=== PATIENT | male | born 1950 ===

== ENCOUNTER 2016-08-28 12:25 | Observation (INO) | payer MEDICAID ==
[2016-08-28 12:40] VITALS: TEMP 98.4; O2SAT 100
[2016-08-28] MEDS ORDERED: Absorbable Gelatin Sponge Size 12-7 ONE ×3 (14:05→14:15)
[2016-08-28] MEDS ORDERED: Absorbable Gelatin Sponge Size 100 TP ONE (14:08)
[2016-08-28] MEDS ORDERED: Cellulose Hemostat 2X3 Sheet TP ONE (14:20)
--- NOTE | 2016-08-28 14:32 | ED PDOC ---
HPI: Dental Pain/Injury Time Seen by Provider: 08/28/16 13:33 Chief Complaint (Nursing): Abnormal Skin Integrity Chief Complaint (Provider): dental pain History Per: Patient History/Exam Limitations: no limitations Additional Complaint(s): 66yo M in ED with poor half-way-states that he had a crown placed last -states that he was told he would have some gum bleeding. last night noted some bleeding after tooth brushing this AM increased and states she is bleeding profusely form gums went to dentists today was examined and told that he needed either primary care or ER attentions at this time. Pt denies any bleeding d/o, not currently taking blood thinners. Past Medical History Reviewed: Historical Data, Nursing Documentation, Vital Signs Vital Signs: Last Vital Signs Temp 98.4 F 08/28/16 12:35 Pulse 112 H 08/28/16 12:35 Resp 16 08/28/16 12:35 BP 148/100 H 08/28/16 12:35 Pulse Ox 100 08/28/16 12:35 - Medical History PMH: HTN, Hypercholesterolemia - Family History Family History: States: Unknown Family Hx - Home Medications Home Medications: Ambulatory Orders Medication Instructions Recorded Hydrochlorothiazide [HCTZ] 1 tab PO DAILY 06/19/15 Docusate [Colace] 100 mg PO BID PRN #20 cap 08/04/15 Nystatin/Triamcinolone [Mycolog 1 oin TP BID #1 tub 02/27/16 Ointment] Amoxicillin/Clavulanate [Augmentin 1 tab PO BID #14 tab 08/28/16 875 MG-125 MG] - Allergies Allergies/Adverse Reactions: Allergies Allergy/AdvReac Type Severity Reaction Status Date / Time No Known Allergies Allergy Verified 08/28/16 12:34 Review of Systems ROS Statement: Except As Marked, All Systems Reviewed And Found Negative Constitutional: Negative for: Fever, Chills ENT: Positive for: Mouth Pain Cardiovascular: Negative for: Chest Pain Respiratory: Negative for: Cough, Shortness of Breath Physical Exam - Reviewed Nursing Documentation Reviewed: Yes Vital Signs Reviewed: Yes - Physical Exam Appears: Positive for: Non-toxic, No Acute Distress, Uncomfortable Skin: Positive for: Normal Color, Warm. Negative for: Pallor ENT: Positive for: Normal ENT Inspection, Other (mouth: upper left molar area: continusou bleeding from gum both inner and outer gums with loonsed teeth, teeth root exposure and receding gum lines. pt with advanced gingivities. no bleeding no other placed) Cardiovascular/Chest: Positive for: Regular Rate, Rhythm Respiratory: Positive for: CNT, Normal Breath Sounds Neurologic/Psych: Positive for: Alert, Oriented - Laboratory Results Result Diagrams: 08/28/16 17:45 08/28/16 15:30 Interpretation Of Abn Labs: CO2 low, BUN high-pt will get bolus of NS fluids - ECG O2 Sat by Pulse Oximetry: 100 - Progress ED Course And Treament: unable to control bleeding with guaze, surigicel #4 used and cellulose hemostat to help control bleeding- some hemostatis achieved. pt will get H&H 16:04: pt still with some bleeding, but majority of bleeding under control appt made with [facility] by pt. liaison for next week, and with primary dental for tomorrow. Will use lido/epi gauze soak to attempt to further stop the bleeding, bleeding is further controlled. pt stable and well appearing 16:47 [place] consulted-suggested by MD Juan- suggested soak with benzyl peroxide and if bleding does not stop to have pt f.u in [facility] clinic at [place] tomorrow. 18:11: bleeding has stopped. pt now tolerating soft puree food. 18:59: pt now pending folic acid. completed abx tx in ED. normal H&H at this time. pt was given appt time and number/place for perodonitis. also will be given [facility] contact if worsened. Medical Decision Making Medical Decision Making: pt well appearing. no bleeding in gingiva Pt given strict instructions for f/u. appt made with entrepreneur Maria Del Carmen [facility] [id number] [place] [phone] on September 04 2016 4pm VS stable Pt well appearing, afebrile. ED OBSERVATION Discharge: Yes Date of observation admission: 08/28/16 Time of observation admission: 15:35 - Observation admission statement Patient is being placed in observation because:: Pt needs abx and folic acid. adn pending good hemostasis. - Goals of Observation Goals of observation are:: pt is stable in ED-at this time. now pending folic acid and abx/NS. good hemostatis achieved Disposition - Clinical Impression Clinical Impression: Gingival bleeding, Gingivitis - Patient ED Disposition Is Patient to be Admitted: Transfer of Care Counseled Patient/Family Regarding: Studies Performed, Diagnosis, Need For Followup, Rx Given - Disposition Disposition: Routine/Home Disposition Time: 19:57 Condition: STABLE
[2016-08-28] MEDS ORDERED: Ampicillin/Sulbactam 3 GM in Sodium Chloride 0.9% 100 ML IVPB STA (15:09)
[2016-08-28] MEDS ORDERED: metroNIDAZOLE 500mg/100ml NS 100 ML IVPB STA (15:12)
[2016-08-28] MEDS ORDERED: Lidocaine 2% w Epi 1:100,000 Inj IJ ONE ×2 (15:59→16:03)
[2016-08-28] MEDS ORDERED: metroNIDAZOLE 500mg/100ml NS 100 ML IVPB ONE (16:03)
[2016-08-28 16:05] LABS: ALKALINE PHOSPHATASE 92 U/L (38-126); ALT/SGPT 67 U/L (21-72); AST/SGOT 78 U/L (17-59); BILIRUBIN,TOTAL 1.5 mg/dl (0.2-1.3); BLOOD UREA NITROGEN 30 mg/dl (9-20); CARBON DIOXIDE 20 mmol/L (22-30); CHLORIDE 106 mmol/L (98-107); GFR AFRICAN-AMERICAN > 60; GLUCOSE,RANDOM 102 mg/dL (75-110); MAGNESIUM 1.7 MG/DL (1.6-2.3); PHOSPHOROUS 2.3 mg/dl (2.5-4.5); SODIUM 143 mmol/l (132-148); TOTAL PROTEIN 8.7 G/DL (6.3-8.2)
[2016-08-28 16:31] VITALS: BP 144/105; PULSE 100; RESP 19
[2016-08-28] MEDS ORDERED: Sodium Chloride 0.9% 1,000 ML IV STA (16:32)
[2016-08-28] MEDS ORDERED: Absorbable Gelatin Sponge Size 12-7 TP ONE (16:35)
[2016-08-28 18:22] LABS: BASO % 0.5 % (0.0-2.0); EOS # 0.2 K/uL (0.0-0.7); EOS % 1.9 % (0.0-4.0); HEMATOCRIT 39.7 % (35.0-51.0); LYMPH # 1.3 K/uL (1.0-4.3); LYMPH % 14.4 % (20.0-40.0); MEAN CELL VOLUME 97.5 fl (80.0-94.0); MEAN CORPUSCULAR HEMOGLOBIN 33.7 pg (27.0-31.0); MEAN CORPUSCULAR HGB CONC 34.6 g/dL (33.0-37.0); MEAN PLATELET VOLUME 9.4 fl (7.2-11.7); MONO # 0.9 K/uL (0.0-0.8); MONO % 10.1 % (0.0-10.0); NEUT # 6.4 K/uL (1.8-7.0); NEUT % 73.1 % (50.0-75.0); NRBC % 0.1 % (0.0-0.0); RED CELL DISTRIBUTION WIDTH 13.1 % (11.5-14.5); WHITE BLOOD COUNT 8.8 K/uL (4.8-10.8)
[2016-08-28 18:45] LABS: PARTIAL THROMBOPLASTIN TIME 27.7 SECONDS (23.3-32.5)
== END 2016-08-28 20:54 | disposition home or self-care (01) ==
LOC: H.ER 12:25 → H.EROBSV 16:55
PROVIDERS: ADMIT Emergency Medicine; ATTEND Emergency Medicine
DX: K05.10 Chronic gingivitis, plaque induced (principal); I10 Essential (primary) hypertension

== ENCOUNTER 2017-05-12 12:53 | Emergency (ER) | payer MEDICAID ==
[2017-05-12 13:14] VITALS: BP 127/76; PULSE 65; RESP 18; TEMP 96.8; O2SAT 98
[2017-05-12] MEDS ORDERED: Naproxen 500 MG TAB PO STA (14:07)
[2017-05-12] MEDS ORDERED: Naproxen 500 MG TAB PO ONE (14:33)
--- NOTE | 2017-05-12 16:26 | ED PDOC ---
HPI: Back Time Seen by Provider: 05/12/17 13:19 Chief Complaint (Nursing): Back Pain Chief Complaint (Provider): Back Pain History Per: Patient History/Exam Limitations: no limitations Current Symptoms Are (Timing): Still Present Quality Of Discomfort: "Pain" Previous Symptoms: Back Pain (sciatic; herniated lumbar disc) Additional Complaint(s): Keny Valenzuela a 67 year old male with a past medical history of sciatica and lumbar herniated disc presents to the ED intoxicated complaining of back pain. The patient reports that he usually takes naproxen for his back pain but he ran out. Denies hematuria, abdominal pain, nausea, vomiting. PMD: Non [facility] Provider, - Risk Factors AAA Risk Factors: Pos: Older Than 49 Years Of Age, Hypertension Past Medical History Reviewed: Historical Data, Nursing Documentation, Vital Signs Vital Signs: Last Vital Signs Temp 96.8 F L 05/12/17 13:11 Pulse 65 05/12/17 13:11 Resp 18 05/12/17 13:11 BP 127/76 05/12/17 13:11 Pulse Ox 98 05/12/17 13:11 - Medical History PMH: HTN, Hypercholesterolemia - Family History Family History: States: Unknown Family Hx - Social History Current smoker - smoking cessation education provided: Yes (Light Smoker < 10 Cigarettes Daily) Ex-Smoker (has not smoked in the last 12 months): Yes Alcohol: > 2 Drinks/Day Drugs: Denies - Home Medications Home Medications: Ambulatory Orders Medication Instructions Recorded Hydrochlorothiazide [HCTZ] 1 tab PO DAILY 06/19/15 Docusate [Colace] 100 mg PO BID PRN #20 cap 08/04/15 Nystatin/Triamcinolone [Mycolog 1 oin TP BID #1 tub 02/27/16 Ointment] Amoxicillin/Clavulanate [Augmentin 1 tab PO BID #14 tab 08/28/16 875 MG-125 MG] Naproxen 500 mg PO TID #30 tab 05/12/17 - Allergies Allergies/Adverse Reactions: Allergies Allergy/AdvReac Type Severity Reaction Status Date / Time No Known Allergies Allergy Verified 08/28/16 12:34 Review of Systems Gastrointestinal: Negative for: Nausea, Vomiting, Abdominal Pain Genitourinary Male: Negative for: Hematuria Musculoskeletal: Positive for: Back Pain Physical Exam - Reviewed Nursing Documentation Reviewed: Yes Vital Signs Reviewed: Yes - Physical Exam Appears: Positive for: Non-toxic, No Acute Distress Head Exam: Positive for: NORMAL INSPECTION Skin: Positive for: Normal Color, Warm, Dry. Negative for: Rash Eye Exam: Positive for: Normal appearance, EOMI, PERRL Neck: Positive for: Normal, Painless ROM, Supple Cardiovascular/Chest: Positive for: Regular Rate, Rhythm, Chest Non Tender. Negative for: Tachycardia Respiratory: Positive for: Normal Breath Sounds. Negative for: Wheezing, Respiratory Distress Back: Positive for: Normal Inspection. Negative for: L CVA Tenderness, R CVA Tenderness, Vertebral Tenderness Neurologic/Psych: Positive for: Alert, Oriented, Gait (unsteady). Negative for : Motor/Sensory Deficits - ECG O2 Sat by Pulse Oximetry: 98 (RA) Pulse Ox Interpretation: Normal Medical Decision Making Medical Decision Makin Initial Impression 67 y/o male presenting with back pain Initial Plan: * Udip * Naproxen 500mg PO * Reevaluation Patient will be given naproxen and allowed to stay in the ED until he is clinically sober. PT with unremarkable udip. Rx naproxen with f.u shanteht pmd. Documented by Joycelyn Mayorga acting as a scribe for Claudia Wei. All medical record entries made by the Scribe were at my direction and personally dictated by me. I have reviewed the chart and agree that the record accurately reflects my personal performance of the history, physical exam, medical decision making, and the department course for this patient. I have also personally directed, reviewed, and agree with the discharge instructions and disposition. Disposition - Clinical Impression Clinical Impression: Sciatica - Patient ED Disposition Is Patient to be Admitted: No Counseled Patient/Family Regarding: Studies Performed, Diagnosis, Need For Followup, Rx Given - Disposition Disposition: Routine/Home Disposition Time: 16:30 Condition: STABLE Prescriptions: Naproxen 500 mg PO TID #30 tab Instructions: Lumbar Radiculopathy (ED) Print Language: PALESTINIAN - POA Present On Arrival: None
== END 2017-05-12 16:44 | disposition home or self-care (01) ==
LOC: H.ER 12:53
DX: M54.30 Sciatica, unspecified side (principal); F17.210 Nicotine dependence, cigarettes, uncomplicated; I10 Essential (primary) hypertension

== ENCOUNTER 2017-06-19 05:39 | Emergency (ER) | payer MEDICAID ==
[2017-06-19 06:00] VITALS: TEMP 98; O2SAT 98
[2017-06-19 07:59] LABS: BASO # 0.1 K/uL (0.0-0.2); BASO % 1.4 % (0.0-2.0); EOS # 0.3 K/uL (0.0-0.7); EOS % 5.5 % (0.0-4.0); HEMOGLOBIN 12.7 g/dL (12.0-18.0); LYMPH # 1.9 K/uL (1.0-4.3); LYMPH % 36.3 % (20.0-40.0); MEAN CELL VOLUME 93.1 fl (80.0-94.0); MEAN CORPUSCULAR HEMOGLOBIN 30.9 pg (27.0-31.0); MEAN CORPUSCULAR HGB CONC 33.2 g/dL (33.0-37.0); MEAN PLATELET VOLUME 8.3 fl (7.2-11.7); MONO # 0.6 K/uL (0.0-0.8); MONO % 11.7 % (0.0-10.0); NEUT # 2.4 K/uL (1.8-7.0); NEUT % 45.1 % (50.0-75.0); NRBC % 0.2 % (0.0-0.0); RBC 4.12 Mil/uL (4.40-5.90); RED CELL DISTRIBUTION WIDTH 15.9 % (11.5-14.5); WHITE BLOOD COUNT 5.3 K/uL (4.8-10.8)
[2017-06-19 08:11] LABS: ALB/GLOB RATIO 1.1 (1.0-2.1); ALBUMIN 4.3 g/dL (3.5-5.0); ALT/SGPT 72 U/L (21-72); AST/SGOT 87 U/L (17-59); BLOOD UREA NITROGEN 11 mg/dl (9-20); CALCIUM 8.7 mg/dL (8.4-10.2); GFR AFRICAN-AMERICAN > 60; GFR NON-AFRICAN AMERICAN > 60
--- NOTE | 2017-06-19 09:33 | ED PDOC ---
HPI: Back Time Seen by Provider: 06/19/17 07:05 Chief Complaint (Nursing): Alcohol Ingestion Chief Complaint (Provider): Chronic Back Pain History Per: Patient History/Exam Limitations: no limitations Onset/Duration Of Symptoms: Persistent Current Symptoms Are (Timing): Still Present Previous Symptoms: Back Pain, Chronic Pain Additional Complaint(s): Keny Valenzuela, a 67 year old male presents to the ED complaining of chronic back pain radiating to his right leg onset several months ago. Reports he goes to the clinic. However, after visiting his family from [place], the pain has worsen and the treatment at clinic does not provide him any relief. To relieve his pain, he drink alcohol and does not take any medication for the pain. He has taken one dosage of Napizole. Reports he cannot move his right leg. Denies fever, nausea, vomiting, or trouble urinating. PMD: Provider TBD Past Medical History Reviewed: Historical Data, Nursing Documentation, Vital Signs Vital Signs: Last Vital Signs Temp 98.0 F 06/19/17 05:58 Pulse 99 H 06/19/17 06:30 Resp 16 06/19/17 05:58 BP 148/99 H 06/19/17 06:30 Pulse Ox 98 06/19/17 05:58 - Medical History PMH: HTN, Hypercholesterolemia Denies: Chronic Kidney Disease Other PMH: Lumbar CMIR; bulging disk 1 year ago; L4-L5 lobel that presses on nerve - Surgical History Surgical History: No Surg Hx - Family History Family History: States: Unknown Family Hx - Social History Current smoker - smoking cessation education provided: Yes Alcohol: Occasional - Home Medications Home Medications: Ambulatory Orders Medication Instructions Recorded Hydrochlorothiazide [HCTZ] 1 tab PO DAILY 06/19/15 Docusate [Colace] 100 mg PO BID PRN #20 cap 08/04/15 Nystatin/Triamcinolone [Mycolog 1 oin TP BID #1 tub 02/27/16 Ointment] Amoxicillin/Clavulanate [Augmentin 1 tab PO BID #14 tab 08/28/16 875 MG-125 MG] Naproxen 500 mg PO TID #30 tab 05/12/17 Ibuprofen [Motrin] 600 mg PO Q6H #20 tab 06/07/17 Cyclobenzaprine [Cyclobenzaprine 10 mg PO TID #30 tab 06/19/17 HCl] Indomethacin [Indocin] 25 mg PO TID PRN #30 cap 06/19/17 Lidocaine 5% [Lidoderm] 1 patch TD DAILY #10 patch 06/19/17 - Allergies Allergies/Adverse Reactions: Allergies Allergy/AdvReac Type Severity Reaction Status Date / Time No Known Allergies Allergy Verified 08/28/16 12:34 Review of Systems ROS Statement: Except As Marked, All Systems Reviewed And Found Negative Constitutional: Negative for: Fever Gastrointestinal: Negative for: Nausea, Vomiting Genitourinary Male: Negative for: Frequency Musculoskeletal: Positive for: Back Pain (radiates to the right leg), Leg Pain ( right leg) Physical Exam - Reviewed Nursing Documentation Reviewed: Yes Vital Signs Reviewed: Yes - Physical Exam Appears: Positive for: Well, Non-toxic Head Exam: Positive for: ATRAUMATIC, NORMAL INSPECTION, NORMOCEPHALIC Skin: Positive for: Normal Color, Warm, Dry Eye Exam: Positive for: Normal appearance, EOMI, PERRL ENT: Positive for: Normal ENT Inspection Neck: Positive for: Normal, Painless ROM, Supple Cardiovascular/Chest: Positive for: Regular Rate, Rhythm. Negative for: Murmur , Bradycardia Respiratory: Positive for: Normal Breath Sounds. Negative for: Wheezing, Respiratory Distress Gastrointestinal/Abdominal: Positive for: Normal Exam, Bowel Sounds, Soft. Negative for: Tenderness Extremity: Positive for: Tenderness (Palpable tenderness on right para lumbar), Other (Leg strength (+) Right leg and (-) left leg) Neurologic/Psych: Positive for: Alert, Oriented (x3), Motor/Sensory Deficits (5/ 5), Gait - Laboratory Results Result Diagrams: 06/19/17 07:47 06/19/17 07:47 - ECG O2 Sat by Pulse Oximetry: 98 (RA) Pulse Ox Interpretation: Normal Medical Decision Making Medical Decision Making: Time: 07:27 Initial Impression: Lumbar radiculopathy with muscle spasm without severe neural diffusion Initial Plan: --Alcohol Serum --CMP --Drug screen --Flexeril 10mg --Toradol 30mg --Tyenol 650mg --Urinalysis --Reevaluation Documented by Jennifer Valenzuela acting as a scribe for Linda Da Silva MD. All medical record entries made by the Scribe were at my direction and personally dictated by me. I have reviewed the chart and agree that the record accurately reflects my personal performance of the history, physical exam, medical decision making, and the department course for this patient. I have also personally directed, reviewed, and agree with the discharge instructions and disposition. Disposition - Clinical Impression Clinical Impression: Lumbar radicular pain - Patient ED Disposition Is Patient to be Admitted: No Doctor Will See Patient In The: Office Counseled Patient/Family Regarding: Diagnosis, Need For Followup, Rx Given - Disposition Referrals: [facility] [Outside] [facility] [Outside] Disposition: Routine/Home Disposition Time: 12:08 Condition: IMPROVED Prescriptions: Cyclobenzaprine [Cyclobenzaprine HCl] 10 mg PO TID #30 tab Indomethacin [Indocin] 25 mg PO TID PRN #30 cap PRN Reason: Pain, Moderate (4-7) Lidocaine 5% [Lidoderm] 1 patch TD DAILY #10 patch Instructions: Lumbar Disc Herniation (ED) Forms: [facility] (Estonian) Print Language: UKRAINIAN - POA Present On Arrival: None
[2017-06-19 10:38] LABS: URINE BILIRUBIN NEGATIVE (NEGATIVE); URINE BLOOD NEGATIVE (NEGATIVE); URINE CLARITY CLEAR (Clear); URINE COLOR YELLOW (YELLOW); URINE GLUCOSE (UA) NEG (Normal); URINE LEUKOCYTE ESTERASE NEG Leu/uL (Negative); URINE NITRATE NEGATIVE (NEGATIVE); URINE PROTEIN NEGATIVE (NEGATIVE); URINE UROBILINOGEN 0.2-1.0 mg/dL (0.2-1.0)
[2017-06-19 10:54] LABS: BARBITURATES, UR NEGATIVE (NEGATIVE); BENZODIAZEPINES, UR NEGATIVE (NEGATIVE); OPIATES, UR NEGATIVE (NEGATIVE); PHENCYCLIDINE, UR NEGATIVE (NEGATIVE)
[2017-06-19 14:19] VITALS: BP 137/84; PULSE 87; RESP 18
== END 2017-06-19 14:18 | disposition home or self-care (01) ==
LOC: H.ER 05:39
DX: M51.06 Intervertebral disc disorders with myelopathy, lumbar region (principal); E78.00 Pure hypercholesterolemia, unspecified; G89.29 Other chronic pain; I10 Essential (primary) hypertension; M54.16 Radiculopathy, lumbar region
CPT/HCPCS: 80053; 80320; 80324; 80345; 80346; 80349; 80353; 80358; 80361; 81003; 83992; 85025; 99283; J1885

== ENCOUNTER 2017-08-25 23:42 | Emergency (ER) | payer MEDICAID ==
[2017-08-25 23:49] VITALS: O2SAT 98
--- NOTE | 2017-08-26 00:45 | ED PDOC ---
Lower Extremity Pain/Injury Time Seen by Provider: 08/25/17 23:42 Chief Complaint (Nursing): Back Pain Chief Complaint (Provider): leg pain History Per: Patient History/Exam Limitations: intoxication Onset/Duration Of Symptoms: Persistent (x3 months) Current Symptoms Are (Timing): Still Present Additional Complaint(s): 67 year old male with medical history of hypertension, arthritis and ETOH abuse , presents to the emergency department with a complaint of right-sided leg pain radiating from right buttock ongoing for 3 months. He denied any trauma. Patient reports using OTC patches for relief and admits to drinking alcohol earlier today. PMD: Candace Max MD Past Medical History Reviewed: Historical Data, Nursing Documentation, Vital Signs Vital Signs: Last Vital Signs Temp 97.6 F 08/25/17 23:46 Pulse 106 H 08/25/17 23:46 Resp 18 08/25/17 23:46 BP 165/100 H 08/25/17 23:46 Pulse Ox 98 08/25/17 23:46 - Medical History PMH: Arthritis, HTN, Hypercholesterolemia Denies: Chronic Kidney Disease - Surgical History Surgical History: No Surg Hx - Family History Family History: States: Unknown Family Hx - Social History Current smoker - smoking cessation education provided: Yes Alcohol: > 2 Drinks/Day Drugs: Denies - Home Medications Home Medications: Ambulatory Orders Medication Instructions Recorded Hydrochlorothiazide [HCTZ] 1 tab PO DAILY 06/19/15 Docusate [Colace] 100 mg PO BID PRN #20 cap 08/04/15 Nystatin/Triamcinolone [Mycolog 1 oin TP BID #1 tub 02/27/16 Ointment] Amoxicillin/Clavulanate [Augmentin 1 tab PO BID #14 tab 08/28/16 875 MG-125 MG] Naproxen 500 mg PO TID #30 tab 05/12/17 Ibuprofen [Motrin] 600 mg PO Q6H #20 tab 06/07/17 Cyclobenzaprine [Cyclobenzaprine 10 mg PO TID #30 tab 06/19/17 HCl] Indomethacin [Indocin] 25 mg PO TID PRN #30 cap 06/19/17 Lidocaine 5% [Lidoderm] 1 patch TD DAILY #10 patch 06/19/17 - Allergies Allergies/Adverse Reactions: Allergies Allergy/AdvReac Type Severity Reaction Status Date / Time No Known Allergies Allergy Verified 08/28/16 12:34 Review of Systems Review Of Systems: ROS cannot be obtained secondary to pt's inabilty to answer questions. (intoxicated) Musculoskeletal: Positive for: Leg Pain (right-sided) Physical Exam - Reviewed Nursing Documentation Reviewed: Yes Vital Signs Reviewed: Yes - Physical Exam Appears: Positive for: Non-toxic, No Acute Distress Head Exam: Positive for: ATRAUMATIC, NORMAL INSPECTION, NORMOCEPHALIC Neck: Positive for: Normal Cardiovascular/Chest: Positive for: Regular Rate, Rhythm. Negative for: Murmur Respiratory: Positive for: Normal Breath Sounds. Negative for: Wheezing, Respiratory Distress Pulses-Dorsalis Pedis (L): 2+ Pulses-Dorsalis Pedis (R): 2+ Extremity: Positive for: Normal ROM (upper/lower). Negative for: Pedal Edema ( bilateral), Deformity (upper/lower) Neurologic/Psych: Positive for: Alert, Oriented, Gait (unsteady), Other ( slurred speech). Negative for: Motor/Sensory Deficits - Laboratory Results Result Diagrams: 08/26/17 00:44 08/26/17 00:44 - ECG O2 Sat by Pulse Oximetry: 98 (RA) Pulse Ox Interpretation: Normal Medical Decision Making Medical Decision Making: Initial Impression: 67 y/o male with right LE pain in setting of known arthritis and ETOH abuse Initial Plan: * Alcohol serum * CMP * Toradol 10mg IVP * Accucheck * Xray Tibia/fibula Time: 0300 --Labs: no significant abnormalities except for elevated blood alcohol level. --Xray tibia/fibula: negative for fractures or dislocation. --Upon provider reevaluation, patient is feeling better, medically stable and requires no further treatment in the ED at this time. Patient will be discharged home. Counseling was provided and all questions were answered regarding diagnosis and need for follow up with [facility]. There is agreement to discharge plan. Return if symptoms persist or worsen. Clinical Impression: Arthritis; Alcohol intoxication Scribe Attestation: Documented by Jennifer Reece, acting as a scribe for Boaz He MD. Provider Scribe Attestation: All medical record entries made by the Scribe were at my direction and personally dictated by me. I have reviewed the chart and agree that the record accurately reflects my personal performance of the history, physical exam, medical decision making, and the department course for this patient. I have also personally directed, reviewed, and agree with the discharge instructions and disposition. Disposition - Clinical Impression Clinical Impression: Arthritis, Alcohol intoxication - Patient ED Disposition Is Patient to be Admitted: No Counseled Patient/Family Regarding: Studies Performed, Diagnosis, Need For Followup - Disposition Referrals: [facility] [Outside] Disposition: Routine/Home Disposition Time: 03:00 Condition: STABLE Instructions: Osteoarthritis, Alcohol Abuse and Alcoholism (DC) Forms: [employer] (Thai) Print Language: CYMRAES
[2017-08-26 00:52] LABS: BASO # 0.1 K/uL (0.0-0.2); BASO % 0.8 % (0.0-2.0); EOS # 0.1 K/uL (0.0-0.7); EOS % 0.9 % (0.0-4.0); HEMOGLOBIN 14.2 g/dL (12.0-18.0); LYMPH # 1.4 K/uL (1.0-4.3); LYMPH % 15.5 % (20.0-40.0); MEAN CELL VOLUME 96.2 fl (80.0-94.0); MEAN CORPUSCULAR HEMOGLOBIN 32.5 pg (27.0-31.0); MEAN CORPUSCULAR HGB CONC 33.8 g/dL (33.0-37.0); MEAN PLATELET VOLUME 8.4 fl (7.2-11.7); MONO % 11.2 % (0.0-10.0); NEUT # 6.5 K/uL (1.8-7.0); NEUT % 71.6 % (50.0-75.0); NRBC % 0.1 % (0.0-0.0); RBC 4.36 Mil/uL (4.40-5.90); RED CELL DISTRIBUTION WIDTH 13.9 % (11.5-14.5)
[2017-08-26 01:14] LABS: ALBUMIN 4.4 g/dL (3.5-5.0); ALT/SGPT 64 U/L (21-72); AST/SGOT 105 U/L (17-59); BLOOD UREA NITROGEN 25 mg/dl (9-20); CALCIUM 8.8 mg/dL (8.4-10.2); GFR AFRICAN-AMERICAN > 60; GFR NON-AFRICAN AMERICAN > 60
[2017-08-26 06:22] VITALS: BP 150/95; PULSE 96; RESP 16; TEMP 98.3
--- NOTE | 2017-08-26 09:56 | RAD ---
PROCEDURE: Radiographs of the right tibia and fibula. HISTORY: pain COMPARISON: None available. TECHNIQUE: Frontal and lateral views obtained. FINDINGS: BONES: No fracture or destructive lesion. JOINT SPACES: Unremarkable. OTHER FINDINGS: None. IMPRESSION: Unremarkable radiographs of the right tibia and fibula.
== END 2017-08-26 06:21 | disposition home or self-care (01) ==
LOC: H.ER 23:42
DX: M19.90 Unspecified osteoarthritis, unspecified site (principal); E78.00 Pure hypercholesterolemia, unspecified; F10.129 Alcohol abuse with intoxication, unspecified; I10 Essential (primary) hypertension
CPT/HCPCS: 73590; 80053; 80320; 82948; 85025; 96374; 99283; J1885

== ENCOUNTER 2017-09-09 13:12 | Emergency (ER) | payer MEDICAID ==
--- NOTE | 2017-09-09 16:03 | ED PDOC ---
HPI: Psych/Substance Abuse Time Seen by Provider: 09/09/17 13:25 Chief Complaint (Nursing): Alcohol Ingestion Chief Complaint (Provider): Alcohol Ingestion ED Caveat: Intoxicated History Per: Patient History/Exam Limitations: intoxication Onset/Duration Of Symptoms: Hrs Current Symptoms Are (Timing): Still Present Modifying Factor(s): Alcohol Additional Complaint(s): 67 y/o male presents to the ED for EtOH intoxication. Patient was found by [place] [employer] drinking in public. He has an unsteady gate and admits to drinking beer but offers no complaints. PMD: None provided Past Medical History Reviewed: Historical Data, Nursing Documentation, Vital Signs Vital Signs: Last Vital Signs Temp 98.9 F 09/09/17 13:14 Pulse 96 H 09/09/17 13:14 Resp 16 09/09/17 13:14 BP 144/89 09/09/17 13:14 Pulse Ox 97 09/09/17 13:14 - Medical History PMH: Arthritis, HTN, Hypercholesterolemia Denies: Chronic Kidney Disease - Surgical History Surgical History: No Surg Hx - Family History Family History: States: Unknown Family Hx - Social History Alcohol: > 2 Drinks/Day - Home Medications Home Medications: Ambulatory Orders Medication Instructions Recorded Hydrochlorothiazide [HCTZ] 1 tab PO DAILY 06/19/15 Docusate [Colace] 100 mg PO BID PRN #20 cap 08/04/15 Nystatin/Triamcinolone [Mycolog 1 oin TP BID #1 tub 02/27/16 Ointment] Amoxicillin/Clavulanate [Augmentin 1 tab PO BID #14 tab 08/28/16 875 MG-125 MG] Naproxen 500 mg PO TID #30 tab 05/12/17 Ibuprofen [Motrin] 600 mg PO Q6H #20 tab 06/07/17 Cyclobenzaprine [Cyclobenzaprine 10 mg PO TID #30 tab 06/19/17 HCl] Indomethacin [Indocin] 25 mg PO TID PRN #30 cap 06/19/17 Lidocaine 5% [Lidoderm] 1 patch TD DAILY #10 patch 06/19/17 - Allergies Allergies/Adverse Reactions: Allergies Allergy/AdvReac Type Severity Reaction Status Date / Time No Known Allergies Allergy Verified 09/09/17 13:14 Review of Systems ROS Statement: Except As Marked, All Systems Reviewed And Found Negative Constitutional: Positive for: Other (EtOH intoxication) Neurological: Negative for: Other (has no complaints) Physical Exam - Reviewed Nursing Documentation Reviewed: Yes Vital Signs Reviewed: Yes - Physical Exam Appears: Positive for: Well, Non-toxic, No Acute Distress Head Exam: Positive for: ATRAUMATIC, NORMAL INSPECTION, NORMOCEPHALIC Skin: Positive for: Normal Color, Warm, Dry Eye Exam: Positive for: EOMI, Normal appearance, PERRL ENT: Positive for: Normal ENT Inspection, Other (EtOH on breath) Neck: Positive for: Normal, Painless ROM Cardiovascular/Chest: Positive for: Regular Rate, Rhythm. Negative for: Murmur Respiratory: Positive for: Normal Breath Sounds. Negative for: Respiratory Distress Gastrointestinal/Abdominal: Positive for: Normal Exam, Soft Back: Positive for: Normal Inspection. Negative for: L CVA Tenderness, R CVA Tenderness, Vertebral Tenderness Extremity: Positive for: Normal ROM. Negative for: Pedal Edema, Deformity Neurologic/Psych: Positive for: Alert, Oriented (x3), Other (slurred speech). Negative for: Motor/Sensory Deficits - ECG O2 Sat by Pulse Oximetry: 97 (RA) Pulse Ox Interpretation: Normal - Progress Re-evaluation Time: 18:50 (Gait steady; unassisted. Offers no complaints. Requesting to be discharged. ) Condition: Re-examined, Improved Medical Decision Making Medical Decision Making: Time: 13:14 Impression: EtOH intoxication Plan: * Glucose check Fingerstick result was 59. Scribe Attestation: Documented by Radha Beck acting as a scribe for Yevgeniy Martin PA-C. MD Scribe Attestation: All medical record entries made by the Scribe were at my direction and personally dictated by me. I have reviewed the chart and agree that the record accurately reflects my personal performance of the history, physical exam, medical decision making, and the department course for this patient. I have also personally directed, reviewed, and agree with the discharge instructions and disposition. Disposition - Clinical Impression Clinical Impression: Alcohol intoxication - Patient ED Disposition Is Patient to be Admitted: No - Disposition Referrals: [facility] [Outside] Disposition: Routine/Home Disposition Time: 18:51 Condition: GOOD Instructions: Alcohol Abuse and Alcoholism (DC) Forms: [employer] [facility] (Citizen [place]) Print Language: KHMER
[2017-09-09 18:42] VITALS: BP 138/79; PULSE 75; RESP 15; TEMP 98
[2017-09-09 18:52] VITALS: O2SAT 97
== END 2017-09-09 19:01 | disposition home or self-care (01) ==
LOC: H.ER 13:12
DX: F10.129 Alcohol abuse with intoxication, unspecified (principal); E78.00 Pure hypercholesterolemia, unspecified; I10 Essential (primary) hypertension

== ENCOUNTER 2017-10-23 23:45 | Emergency (ER) | payer MEDICAID ==
[2017-10-23 23:53] VITALS: O2SAT 99
--- NOTE | 2017-10-24 00:55 | ED PDOC ---
HPI: General Adult Chief Complaint (Provider): HTN History Per: Patient History/Exam Limitations: no limitations Onset/Duration Of Symptoms: Days Have you had recent travel within the past 21 days to any of the following countries: [place], [place], [place] or [place]?: No Time Seen by Provider: 10/24/17 00:09 Chief Complaint (Nursing): Medical Clearance Additional Complaint(s): 67 yo male with history of HTN and alcohol abuse brought in by police for clearance for incarceration. Pt states he is concerned about his blood pressure because he does not always take his medications. Pt also reports feeling depressed but denies taking medication for depression in the past. (Jessica Sims) Past Medical History Reviewed: Historical Data, Nursing Documentation, Vital Signs - Medical History PMH: Arthritis, HTN, Hypercholesterolemia Denies: Chronic Kidney Disease - Surgical History Surgical History: No Surg Hx - Family History Family History: States: Unknown Family Hx - Living Arrangements Living Arrangements: With Family - Social History Current smoker - smoking cessation education provided: No Ex-Smoker (has not smoked in the last 12 months): No Alcohol: None Drugs: Denies Vital Signs: Last Vital Signs Temp 97.7 F 10/24/17 03:36 Pulse 86 10/24/17 03:36 Resp 17 10/24/17 03:36 BP 143/89 10/24/17 03:36 Pulse Ox 99 10/24/17 03:36 - Home Medications Home Medications: Ambulatory Orders Medication Instructions Recorded Hydrochlorothiazide [HCTZ] 1 tab PO DAILY 06/19/15 Docusate [Colace] 100 mg PO BID PRN #20 cap 08/04/15 Nystatin/Triamcinolone [Mycolog 1 oin TP BID #1 tub 02/27/16 Ointment] Amoxicillin/Clavulanate [Augmentin 1 tab PO BID #14 tab 08/28/16 875 MG-125 MG] Naproxen 500 mg PO TID #30 tab 05/12/17 Ibuprofen [Motrin] 600 mg PO Q6H #20 tab 06/07/17 Cyclobenzaprine [Cyclobenzaprine 10 mg PO TID #30 tab 06/19/17 HCl] Indomethacin [Indocin] 25 mg PO TID PRN #30 cap 06/19/17 Lidocaine 5% [Lidoderm] 1 patch TD DAILY #10 patch 06/19/17 - Allergies Allergies/Adverse Reactions: Allergies Allergy/AdvReac Type Severity Reaction Status Date / Time No Known Allergies Allergy Verified 09/09/17 13:14 Review of Systems ROS Statement: Except As Marked, All Systems Reviewed And Found Negative Constitutional: Negative for: Fever, Chills Cardiovascular: Positive for: Other. Negative for: Chest Pain, Palpitations Respiratory: Negative for: Cough, Shortness of Breath Gastrointestinal: Negative for: Nausea, Vomiting, Abdominal Pain, Diarrhea Psych: Positive for: Depression. Negative for: Suicidal ideation Physical Exam - Reviewed Nursing Documentation Reviewed: Yes Vital Signs Reviewed: Yes - Physical Exam Appears: Positive for: Well, Non-toxic, No Acute Distress Head Exam: Positive for: ATRAUMATIC, NORMAL INSPECTION, NORMOCEPHALIC Skin: Positive for: Normal Color, Warm, DRY Eye Exam: Positive for: Normal appearance ENT: Positive for: Normal ENT Inspection Neck: Positive for: Normal, Painless ROM Cardiovascular/Chest: Positive for: Regular Rate, Rhythm Respiratory: Positive for: CNT, Normal Breath Sounds Back: Positive for: Normal Inspection Extremity: Positive for: Normal ROM Neurologic/Psych: Positive for: Alert, Oriented - ECG O2 Sat by Pulse Oximetry: 99 Medical Decision Making Medical Decision Making: Referred to Crisis at 12:35 1515 - Pt discharged by crisis, Dr. Schwartz, depression (Jessica Sims) Disposition - Patient ED Disposition Is Patient to be Admitted: No Counseled Patient/Family Regarding: Diagnosis, Need For Followup - Disposition Disposition: Routine/Home Disposition Time: 03:18 - Clinical Impression Clinical Impression: Depression - Disposition Condition: STABLE Additional Instructions: Patient is medically and psychiatrically stable for incarceration. Instructions: Depression Forms: [facility] (Kiswahili) Print Language: GIBRALTARIAN
[2017-10-24 04:21] VITALS: BP 143/89; PULSE 86; RESP 17; TEMP 97.7
== END 2017-10-24 04:10 ==
LOC: H.ER 23:45
DX: F32.9 Major depressive disorder, single episode, unspecified (principal); I10 Essential (primary) hypertension; Z87.891 Personal history of nicotine dependence; E78.00 Pure hypercholesterolemia, unspecified

== ENCOUNTER 2018-02-22 06:36 | Emergency (ER) | payer MEDICAID ==
[2018-02-22] MEDS ORDERED: Lidocaine 5% Patch TD STA (07:27)
[2018-02-22] MEDS ORDERED: Lidocaine 5% Patch TD ONE (07:45)
--- NOTE | 2018-02-22 09:13 | ED PDOC ---
HPI: Back Time Seen by Provider: 02/22/18 07:02 Chief Complaint (Nursing): Back Pain Chief Complaint (Provider): back pain History Per: Patient History/Exam Limitations: no limitations Onset/Duration Of Symptoms: Days (4-5), Intermittent Episodes Current Symptoms Are (Timing): Still Present Quality Of Discomfort: Sharp Severity: Moderate Previous Symptoms: Back Pain Associated Symptoms: None Exacerbating Factor(s): Turning, Movement, Sitting, Standing Additional Complaint(s): 68yo male c/o right lower back pain radiating to leg, taking NSAID with minimal relief, notes history of sciatica, denies recent trauma, falls, fever, incontinence, rash or urinary symptoms. Past Medical History Reviewed: Historical Data, Nursing Documentation, Vital Signs Vital Signs: Last Vital Signs Temp 98.0 F 02/22/18 06:50 Pulse 82 02/22/18 06:50 Resp 16 02/22/18 06:50 BP 148/91 H 02/22/18 06:50 Pulse Ox 96 02/22/18 06:50 - Medical History PMH: Arthritis, HTN, Hypercholesterolemia Denies: Chronic Kidney Disease - Surgical History Surgical History: No Surg Hx - Family History Family History: States: Unknown Family Hx - Living Arrangements Living Arrangements: With Family - Social History Current smoker - smoking cessation education provided: No - Home Medications Home Medications: Ambulatory Orders Medication Instructions Recorded Hydrochlorothiazide [HCTZ] 1 tab PO DAILY 06/19/15 Docusate [Colace] 100 mg PO BID PRN #20 cap 08/04/15 Nystatin/Triamcinolone [Mycolog 1 oin TP BID #1 tub 02/27/16 Ointment] Amoxicillin/Clavulanate [Augmentin 1 tab PO BID #14 tab 08/28/16 875 MG-125 MG] Naproxen 500 mg PO TID #30 tab 05/12/17 Ibuprofen [Motrin] 600 mg PO Q6H #20 tab 06/07/17 Cyclobenzaprine [Cyclobenzaprine 10 mg PO TID #30 tab 06/19/17 HCl] Indomethacin [Indocin] 25 mg PO TID PRN #30 cap 06/19/17 Lidocaine 5% [Lidoderm] 1 patch TD DAILY #10 patch 06/19/17 Cyclobenzaprine [Cyclobenzaprine 10 mg PO Q8 PRN #9 tab 02/22/18 HCl] Ibuprofen [Motrin Tab] 600 mg PO Q6 PRN #15 tab 02/22/18 traMADol [Ultram] 50 mg PO TID PRN #12 tab 02/22/18 - Allergies Allergies/Adverse Reactions: Allergies Allergy/AdvReac Type Severity Reaction Status Date / Time No Known Allergies Allergy Verified 09/09/17 13:14 Review of Systems ROS Statement: Except As Marked, All Systems Reviewed And Found Negative Constitutional: Negative for: Fever, Sweats Cardiovascular: Negative for: Chest Pain Respiratory: Negative for: Shortness of Breath Gastrointestinal: Negative for: Abdominal Pain Genitourinary Male: Negative for: Dysuria, Frequency, Hematuria, Scrotal Pain Musculoskeletal: Positive for: Back Pain, Leg Pain. Negative for: Neck Pain, Sh oulder Pain, Arm Pain Skin: Negative for: Rash, Lesions, Jaundice Neurological: Negative for: Weakness, Numbness Psych: Negative for: Anxiety Physical Exam - Reviewed Nursing Documentation Reviewed: Yes Vital Signs Reviewed: Yes - Physical Exam Appears: Positive for: Well, Non-toxic, No Acute Distress Head Exam: Positive for: ATRAUMATIC, NORMAL INSPECTION, NORMOCEPHALIC Skin: Positive for: Normal Color, Warm, DRY Eye Exam: Positive for: EOMI Neck: Positive for: Normal, Painless ROM Cardiovascular/Chest: Positive for: Regular Rate, Rhythm Respiratory: Positive for: CNT, Normal Breath Sounds Gastrointestinal/Abdominal: Positive for: Normal Exam, Soft Back: Positive for: Vertebral Tenderness (minimal lumbar), Decreased ROM, Muscle Spasm (R lumbar). Negative for: L CVA Tenderness, R CVA Tenderness Extremity: Positive for: Normal ROM Neurologic/Psych: Positive for: Alert, Oriented. Negative for: Motor/Sensory Deficits - ECG O2 Sat by Pulse Oximetry: 96 Medical Decision Making Medical Decision Making: +gasca test R Toradol, lidoderm patch and flexeril ordered Re-eval showed gradual improvement D/w clinic resident appt made upcoming for re-eval, additional analgesics Rx. Caution w muscle relaxants, do not drive, fall precations. Disposition - Clinical Impression Clinical Impression: Sciatica - Patient ED Disposition Is Patient to be Admitted: No Counseled Patient/Family Regarding: Studies Performed, Diagnosis, Need For Followup, Rx Given - Disposition Referrals: [facility] [Outside] Disposition: Routine/Home Disposition Time: 10:50 Condition: STABLE Additional Instructions: You have a new appt with [facility] on March 02 at 11am Please take medicines as directed and needed for pain. Return to ER for any worse or new symptoms. Prescriptions: Cyclobenzaprine [Cyclobenzaprine HCl] 10 mg PO Q8 PRN #9 tab PRN Reason: Muscle Spasm Ibuprofen [Motrin Tab] 600 mg PO Q6 PRN #15 tab PRN Reason: Pain, Moderate (4-7) traMADol [Ultram] 50 mg PO TID PRN #12 tab PRN Reason: Pain, Moderate (4-7) Instructions: Sciatica (DC) Forms: [facility] (Latvian) Print Language: NAURUAN
[2018-02-22 11:39] VITALS: BP 144/93; PULSE 79; RESP 18; TEMP 98.2
[2018-02-23 15:12] VITALS: O2SAT 96
== END 2018-02-22 11:25 | disposition home or self-care (01) ==
LOC: H.ER 06:36
DX: M54.31 Sciatica, right side (principal); E78.00 Pure hypercholesterolemia, unspecified; I10 Essential (primary) hypertension
CPT/HCPCS: 96372; 99283; J1885; J2270

== ENCOUNTER 2018-08-14 21:06 | Emergency (ER) | payer MEDICAID ==
[2018-08-14 21:12] VITALS: RESP 16
--- NOTE | 2018-08-15 01:15 | ED PDOC ---
HPI: Psych/Substance Abuse Time Seen by Provider: 08/14/18 21:17 Chief Complaint (Nursing): Alcohol Ingestion Chief Complaint (Provider): alcohol intoxication Additional Complaint(s): 68 y/o M with HTN and HL who presents was brought in by ambulance after being found with unsteady gait on the street. Pt admits to drinking alcohol today. Denies fall or head trauma. His only pain is his Right ankle where he had surgery a few months ago and is chronic. He states that he has been depressed over being out of work for the past year but denies SI/HI, auditory or visual hallucinations. Past Medical History Reviewed: Historical Data, Nursing Documentation, Vital Signs Vital Signs: Last Vital Signs Temp 97.2 F L 08/14/18 21:09 Pulse 91 H 08/14/18 21:09 Resp 16 08/14/18 21:09 BP 145/85 08/14/18 21:09 Pulse Ox 98 08/14/18 21:09 - Medical History PMH: Arthritis, HTN, Hypercholesterolemia Denies: Chronic Kidney Disease - Family History Family History: States: Unknown Family Hx - Home Medications Home Medications: Ambulatory Orders Medication Instructions Recorded Hydrochlorothiazide [HCTZ] 1 tab PO DAILY 06/19/15 Docusate [Colace] 100 mg PO BID PRN #20 cap 08/04/15 Nystatin/Triamcinolone [Mycolog 1 oin TP BID #1 tub 02/27/16 Ointment] Amoxicillin/Clavulanate [Augmentin 1 tab PO BID #14 tab 08/28/16 875 MG-125 MG] Naproxen 500 mg PO TID #30 tab 05/12/17 Ibuprofen [Motrin] 600 mg PO Q6H #20 tab 06/07/17 Cyclobenzaprine [Cyclobenzaprine 10 mg PO TID #30 tab 06/19/17 HCl] Indomethacin [Indocin] 25 mg PO TID PRN #30 cap 06/19/17 Lidocaine 5% [Lidoderm] 1 patch TD DAILY #10 patch 06/19/17 Cyclobenzaprine [Cyclobenzaprine 10 mg PO Q8 PRN #9 tab 02/22/18 HCl] Ibuprofen [Motrin Tab] 600 mg PO Q6 PRN #15 tab 02/22/18 traMADol [Ultram] 50 mg PO TID PRN #12 tab 02/22/18 - Allergies Allergies/Adverse Reactions: Allergies Allergy/AdvReac Type Severity Reaction Status Date / Time No Known Allergies Allergy Verified 09/09/17 13:14 Review of Systems Musculoskeletal: Positive for: Foot Pain (Right ankle pain) Neurological: Negative for: Headache, Dizziness Psych: Positive for: Depression. Negative for: Suicidal ideation Physical Exam - Reviewed Nursing Documentation Reviewed: Yes Vital Signs Reviewed: Yes - Physical Exam Appears: Positive for: Non-toxic Head Exam: Positive for: ATRAUMATIC Eye Exam: Positive for: Conjunctival injection (b/l) Pulses-Dorsalis Pedis (R): 2+ Extremity: Positive for: Normal ROM (with flexion and extension of Right ankle), Capillary Refill (< 2 sec), Other (Right ankle edema) Neurological/Psych: Positive for: Awake, Alert, Oriented, Gait (unsteady), Other (slurred speech) - ECG O2 Sat by Pulse Oximetry: 98 Medical Decision Making Medical Decision Making: Accucheck: 133 Serum ETOH: 148 @ 2am Ibuprofen 600mg PO x 1 Awaiting clinical sobriety 6am: pt re-evaluated, states that he feels much better. He continues to be tearful and state that he is depressed but reiterates that he has never had suicidal thoughts and plans on speaking with a psychiatrist to get help for his depression. Patient ambulating with a steady gait. Resources provided to [facility] and [facility]. Stable for d/c home. Disposition - Clinical Impression Clinical Impression: Alcohol abuse with intoxication - Patient ED Disposition Is Patient to be Admitted: No - Disposition Referrals: [facility] [Outside] Disposition: Routine/Home Disposition Time: 06:10 Condition: STABLE Additional Instructions: Please utilize the resources provided to you to assist with your depression. Return to ER or call 911 if your symptoms worsen. You are advised to seek help for your alcoholism. Instructions: Alcohol Abuse and Alcoholism (DC) Forms: [facility] (French) Print Language: TAJIK
[2018-08-15 06:12] VITALS: O2SAT 98
[2018-08-15 08:05] VITALS: BP 122/73; PULSE 79; TEMP 98.1
== END 2018-08-15 06:10 | disposition home or self-care (01) ==
LOC: H.ER 21:06
DX: F10.129 Alcohol abuse with intoxication, unspecified (principal); E78.00 Pure hypercholesterolemia, unspecified; I10 Essential (primary) hypertension